=== PATIENT | female | born 1970 | race Asian ===

== ENCOUNTER → 2018-01-23 13:23 | Outpatient (CLI) | payer OTHER, MEDICAID, SELFPAY ==
--- NOTE | 2018-01-23 | DI.MG.S_ITS ---
BILATERAL DIGITAL SCREENING MAMMOGRAM 3D/2D WITH CAD: 01/23/2018 CLINICAL: Routine screening. Comparison is made to exams dated: 01/15/2016 mammogram, 12/25/2014 mammogram, and 05/16/2012 mammogram - [facility]. The tissue of both breasts is extremely dense, which lowers the sensitivity of mammography. Current study was also evaluated with a Computer Aided Detection (CAD) system. No significant masses, calcifications, or other findings are seen in either breast. There has been no significant interval change. IMPRESSION: NEGATIVE There is no mammographic evidence of malignancy. A 1 year screening mammogram is recommended. This exam was interpreted at Station ID: [id number]. NOTE: For mammograms, a report in lay terms will be sent to the patient. Approximately 15% of breast malignancies will not be visualized mammographically. In the management of a palpable breast mass, a negative mammogram must not discourage biopsy of a clinically suspicious lesion. Electronically Signed By: Van yoo/christian:01/23/2018 16:01:58 letter sent: Normal Exam ACR BI-RADS Category 1: Negative [id number]
== END ==
PROVIDERS: Family Provider Physician Assistant Medical; PCP Physician Assistant Medical; Visit Provider Physician Assistant Medical
DX: Z12.31 Encounter for screening mammogram for malignant neoplasm of breast (principal)
CPT/HCPCS: 77063; 77067

== ENCOUNTER 2018-09-15 13:04 | Emergency (ER) | payer OTHER, MEDICAID, SELFPAY ==
[2018-09-15 13:05] VITALS: BP 116/77; PULSE 94; RESP 16; TEMP 36.8; O2SAT 98
[2018-09-15 15:40] VITALS: BP 101/75; PULSE 76; RESP 15; O2SAT 98
--- NOTE | 2018-09-15 16:28 | ED.NEUROSD ---
HPI - Neuro Symptoms/Deficit General Chief Complaint: Neuro Symptoms/Deficit Stated Complaint: numbness on rt side of face, dizziness Time Seen by Provider: 09/15/18 16:18 Source: patient, family and EMS Mode of arrival: EMS Limitations: altered mental status History of Present Illness HPI Narrative: Patient is a 47-year-old female who presents with right facial numbness. It is 1 specific area right over her mouth. 9 days ago she had injection for her neck. She states that they injected her right trapezius muscle by her scapula. There was no needle into her spine. She has not had fever she is moving her neck freely she constantly has pain in her neck is not any worse than normal. She also has a headache as she normally has headaches which she takes Excedrin for this is not a worsening headache On Anticoagulants: No Related Data Home Medications Medication Instructions Recorded Confirmed benzonatate 100 mg PO Q4H PRN 09/15/18 09/15/18 clobetasol 1 applic TOPICAL DIRECTED 09/15/18 09/15/18 clobetasol 1 applic TOPICAL DIRECTED 09/15/18 09/15/18 desogestrel-ethinyl estradiol 1 tab PO DAILY 09/15/18 09/15/18 [Richareber] diclofenac sodium 75 mg PO BID 09/15/18 09/15/18 epinephrine 0.3 mg IM PRN PRN 09/15/18 escitalopram oxalate 10 mg PO DAILY 09/15/18 09/15/18 fluticasone propionate [Flonase 1 spray INTRANASAL DIRECTED 09/15/18 09/15/18 Allergy Relief] hydrocodone-acetaminophen 1 tab PO PRN PRN 09/15/18 09/15/18 hydroxyzine HCl 10 mg PO BID 09/15/18 09/15/18 ketoconazole 1 applic TOPICAL DIRECTED 09/15/18 09/15/18 ketoconazole 1 applic TOPICAL DIRECTED 09/15/18 09/15/18 naratriptan 2.5 mg PO PRN PRN 09/15/18 09/15/18 pimecrolimus 1 applic TOPICAL DIRECTED 09/15/18 09/15/18 polyethylene glycol 3350 [Gavilax] 17 g PO DAILY 09/15/18 09/15/18 zolpidem 10 mg PO BEDTIME PRN 09/15/18 09/15/18 Allergies Allergy/AdvReac Type Severity Reaction Status Date / Time diphenhydramine Allergy Unknown Verified 09/15/18 17:06 [From BENADRYL] iodine [IODINE] Allergy Unknown Verified 09/15/18 17:06 lidocaine [LIDOCAINE] Allergy Unknown Verified 09/15/18 17:06 NICKEL SULFATE Allergy Unknown Uncoded 09/15/18 17:06 PHENOL FORMALDEHYDE RESIN Allergy Unknown Uncoded 09/15/18 17:06 PHENYLENEDIAMINE Allergy Unknown Uncoded 09/15/18 17:06 POTASSIUM DICHROMATE Allergy Unknown Uncoded 09/15/18 17:06 Review of Systems Review of Systems GENERAL: Denies chills, fatigue, malaise, fever, sweats, travel HEENT: Denies sinus pain, ear pain, sore throat, difficulty swallowing, neck pain RESPIRATORY: Denies dyspnea, cough, wheezing, hemoptysis, sputum. CARDIOVASCULAR: Denies chest pain, palpitations, orthopnea, edema GASTROINTESTINAL: Denies nausea, vomiting, abdominal pain, diarrhea, constipation, melena. : Denies dysuria, frequency, incontinence, hematuria, urinary retention, flank pain. MUSCULOSKELETAL: Denies weakness, joint pain, or bony pain SKIN: No rash, no erythema, no pruritus NEUROLOGIC: Numbness around mouth, denies speech difficulty weakness extremity tingling PSYCHIATRIC: No concerning psychosocial issues. 12 point review of systems is negative except for those stated above and HPI [facility] Medical History Chronic cervical pain (Acute) Social History Smoking Status: Former smoker alcohol intake: never substance use type: does not use Social History Smoking Status: Former smoker alcohol intake: never substance use type: does not use Exam Initial Vital Signs Initial Vital Signs: Vital Signs Temperature 98.2 F 09/15/18 13:05 Pulse Rate 94 H 09/15/18 13:05 Respiratory Rate 16 09/15/18 13:05 Blood Pressure 116/77 09/15/18 13:05 Pulse Oximetry 98 09/15/18 13:05 GENERAL: Well-appearing, well-nourished and in no acute distress. HEENT: Head atraumatic,EOMI, pupils reactive, face symmetric, CARDIOVASCULAR: Regular rate and rhythm without murmurs, rubs or gallops. RESPIRATORY: Breath sounds equal bilaterally, no wheezes rales or rhonchi. ABDOMEN: Soft, nontender. Normoactive bowel sounds all 4 quadrants. No guarding or rebound. EXTREMITIES: Normal range of motion, no clubbing or edema. Neurovascularly intact NEUROLOGICAL: Alert and oriented x4.Normal gait and speech. Cranial nerves II through XII grossly intact. Good [id number], good [id number], strength equal bilaterally, no dysarthria or aphasia, sensation in tact to soft touch bilaterally, no visual changes, no facial droop. The light sensation change around the right corner of mouth and chin area compared to the left SKIN: Warm, dry, no laceration, no petechiae, no rashes or lesions. Scores NIH Stroke Scale Level of Conciousness: Alert, keenly responsive Ask month/age: Answers both questions correctly. Open/close eyes, close hand: Performs both tasks correctly Best gaze horizontal: Normal Visual wright: No visual loss Facial palsy: Normal symetrical movement Left arm drift: No drift for full 10 sec Right arm drift: No drift for full 10 sec Left leg drift: No drift for full 10 sec Right leg drift: No drift for full 10 sec Limb ataxia: Absent Sensory on face/arms/legs: Normal, no sensory loss Best language: No aphasia, normal Dysarthria: Normal Extinction or inattention: No abnormality Total NIH Stroke scale score: 0 Course Orders Ordered: ED Orders 09/15/18 16:48 CT head/brain wo con Stat 09/15/18 16:57 Basic Metabolic Panel Stat Complete Blood Count AUTO DIFF Stat 09/15/18 17:12 MR cervical spine wo/w con Stat Discontinued Medications Sodium Chloride (Normal Saline 0.9%) 1,000 mls @ 1,000 mls/hr IV BOLUS ONE Stop: 09/15/18 17:47 Last Infusion: 09/15/18 18:38 Dose: 0 mls/hr Admin: 09/15/18 17:39 Dose: 1,000 mls/hr Ketorolac Tromethamine (Toradol) 30 mg IV NOW ONE Stop: 09/15/18 16:49 Last Admin: 09/15/18 17:39 Dose: 30 mg Ondansetron HCl (Zofran) 4 mg IV NOW ONE Stop: 09/15/18 16:49 Last Admin: 09/15/18 17:39 Dose: 4 mg Vital Signs - 8 hr 09/15/18 13:05 09/15/18 15:40 Temperature 98.2 F Pulse Rate 94 H 76 Respiratory Rate 16 15 Blood Pressure 116/77 Blood Pressure [Left Arm] 101/75 Pulse Oximetry 98 98 MDM - Neuro Symptoms/Deficit Medical Records Attestation: I reviewed the patient's medical records. I was able to look at [facility] radiology records. There is a record from 09/06/2018 with fluoroscopy and needle injection of the cervical spine Lab Data Attestation: I reviewed the patient's lab results. Result diagrams: 09/15/18 16:57 09/15/18 16:57 Lab Results 09/15/18 09/15/18 Range/Units 16:57 16:57 WBC 6.7 (4.5-11.0) X10^3/uL RBC 4.70 (4.0-5.2) X10^6/uL Hgb 14.2 (12.0-16.0) g/dL Hct 42.5 (36-46) % MCV 90.3 (80-100) fL MCH 30.2 (26-34) PG MCHC 33.4 (30-36) % RDW 14.2 (11.6-14.8) % Plt Count 296 (150-400) X10^3/uL Neut % (Auto) 53.7 (50-75) % Lymph % (Auto) 36.2 (25-40) % Trinity % (Auto) 6.1 (3-14) % Eos % (Auto) 3.2 (2-4) % Baso % (Auto) 0.8 (0-2) % Neut # (Auto) 3600 (4212-5587) /uL Lymph # (Auto) 2400 (9276-6792) /uL Trinity # (Auto) 400 (0-900) /uL Eos # (Auto) 200 (0-450) /uL Baso # (Auto) 100 (0-100) /uL Sodium 138 (137-145) mmol/L Potassium 3.9 (3.4-5.1) mmol/L Chloride 104 (98-107) mmol/L Carbon Dioxide 23 (22-32) mmol/L BUN 16 (7-17) mg/dL Creatinine 0.90 (0.52-1.04) mg/dL Estimated GFR > 60.0 (>60) mL/min BUN/Creatinine Ratio 17.8 (6-22) Glucose 90 (70-100) mg/dL Calcium 9.0 (8.4-10.2) mg/dL Imaging Data CT scan - head: Radiologist's impression: PROCEDURE: CT HEAD/BRAIN WO CON INDICATIONS: numb face and headache TECHNIQUE: Noncontrast 4.5 mm thick angled axial sections acquired from the foramen magnum to the vertex, with coronal and sagittal reformats. For radiation dose reduction, the following was used: automated exposure control, adjustment of mA and/or kV according to patient size. COMPARISON: [facility], CT, HEAD WITHOUT CONTRAST, 09/17/2016, 20:07. FINDINGS: Image quality: Excellent. CSF spaces: Basal cisterns are patent. No extra-axial fluid collections. Ventricles are normal in size and shape. Brain: No midline shift. No intracranial masses or hemorrhage. Harkins-white matter interface is normal. Skull and face: Calvarium and visualized facial bones are intact, without suspicious lesions. Sinuses: Visualized sinuses and mastoids are clear. IMPRESSION: 1. No acute intracranial process. Dictated by: Dian Torrez M.D. on 09/15/2018 at 16:11 MRI Cervical: Radiologist's impression: PROCEDURE: MR CERVICAL SPINE WO/W CON INDICATIONS: injection 9 days ago, no right face numbness TECHNIQUE: Noncontrast sagittal T1 spin echo and T2 fast spin echo, sagittal STIR, foraminal oblique sagittal T2 fast spin echo, axial gradient echo or T2 fast spin echo through the cervical spine. After the administration of contrast, axial and sagittal T1 spin echo with fat saturation through the cervical spine. COMPARISON: [facility], RF, CERVICAL SPINE INTERLAMINAR, 09/06/2018, 13:06. [facility], MR, C-SPINE WITHOUT CONTRAST, 10/13/2017, 17:40. [facility], CR, XR CERVICAL SPINE 2 OR 3 VIEWS, 10/06/2017, 11:09. FINDINGS: Image quality: Excellent. Alignment and curvature: Straightening of the cervical lordosis without subluxation. Marrow: Marrow is normal in overall signal, without suspicious enhancement. Spinal cord: Visualized spinal cord has normal size and signal. No cerebellar tonsillar herniation. No abnormal intramedullary enhancement. Paraspinous soft tissues: No paravertebral masses or suspicious enhancement. C2-3: Normal appearance. C3-4: Moderate bilateral foraminal disc osteophyte, left larger than right causing moderate left, and mild right foraminal stenosis. Mild posterior disc osteophyte complex causing mild/moderate central canal narrowing, minimally progressed compared to prior. C4-5: Mild posterior central disc bulge, stable. C5-6: Broad-based right paracentral/foraminal disc osteophyte, increased compared to the prior study narrowing the right thecal sac. Mild right foraminal narrowing. C6-7: Normal appearance. C7-T1: Normal appearance. IMPRESSION: 1. Mild progression of chronic degenerative disc osteophyte changes at multiple levels, most extensive on the left at the C3-4 level 2. No epidural fluid collection to suggest complication of recent procedure. Dictated by: Suzy Guadalupe M.D. on 09/15/2018 at 18:08 MDM Narrative Medical decision making narrative: The patient has a mild numbness in her face. The history of a headache possible complicated migraine headache. Head CT MRI of the neck are negative blood work also negative. Patient is feeling better. Discharge Plan Departure Patient Disposition: Home Clinical Impression: Migraine Qualifiers: Migraine type: unspecified Status migrainosus presence: without status migrainosus Intractability: not intractable Qualified Code(s): G43.909 - Migraine, unspecified, not intractable, without status migrainosus Activity Restrictions/Additional Instructions: *You have been diagnosed with headache *What to do: CT scan of had an MRI today did not show any complication from recent procedure. Symptoms are not consistent with stroke. Possibly a complicated migraine like headache. *Continue to take medications as directed *Follow up with your primary care provider in 2-3 days *Return to ER if you should have weakness, worsening numbness, speech difficulty, vision trouble, increasing headache or any new, worsening or concerning symptoms the Prescriptions: No Action desogestrel-ethinyl estradiol [Richareber] 0.15-0.03 mg tablet 1 tab PO DAILY RF: 0 ketoconazole 2 % shampoo 1 applic topical DIRECTED RF: 0 hydrocodone-acetaminophen 5-325 mg tablet 1 tab PO PRN PRN (Reason: pain) RF: 0 pimecrolimus 1 % cream 1 applic topical DIRECTED RF: 0 benzonatate 100 mg capsule 100 mg PO Q4H PRN (Reason: Cough) RF: 0 diclofenac sodium 75 mg tablet,delayed release (DR/EC) 75 mg PO BID RF: 0 clobetasol 0.05 % ointment 1 applic topical DIRECTED RF: 0 epinephrine 0.3 mg/0.3 mL auto-injector 0.3 mg IM PRN PRN (Reason: Allergic Reaction) RF: 0 polyethylene glycol 3350 [Gavilax] 17 gram/dose powder 17 g PO DAILY RF: 0 zolpidem 10 mg tablet 10 mg PO BEDTIME PRN (Reason: Sleep) RF: 0 ketoconazole 2 % cream 1 applic topical DIRECTED RF: 0 hydroxyzine HCl 10 mg tablet 10 mg PO BID RF: 0 clobetasol 0.05 % solution 1 applic topical DIRECTED RF: 0 fluticasone propionate [Flonase Allergy Relief] 50 mcg/actuation spray,suspension 1 spray Intranasal DIRECTED RF: 0 naratriptan 2.5 mg tablet 2.5 mg PO PRN PRN (Reason: Migraine Headache) RF: 0 escitalopram oxalate 10 mg tablet 10 mg PO DAILY RF: 0 Referrals: Feli Farris PA-C [Primary Care Provider] -
--- NOTE | 2018-09-15 16:31 | ED_ITS ---
HPI - Neuro Symptoms/Deficit General Chief Complaint: Neuro Symptoms/Deficit Stated Complaint: numbness on rt side of face, dizziness Time Seen by Provider: 09/15/18 16:18 Source: patient, family and EMS Mode of arrival: EMS Limitations: altered mental status History of Present Illness HPI Narrative: Patient is a 47-year-old female who presents with right facial numbness. It is 1 specific area right over her mouth. 9 days ago she had injection for her neck. She states that they injected her right trapezius mu scle by her scapula. There was no needle into her spine. She has not had fever she is moving her neck freely she constantly has pain in her neck is not any worse than normal. She also has a headache as she normally has headaches which she takes Excedrin for this is not a worsening headache On Anticoagulants: No Related Data Home Medications Medication Instructions Recorded Confirmed benzonatate 100 mg PO Q4H PRN 09/15/18 09/15/18 clobetasol 1 applic TOPICAL DIRECTED 09/15/18 09/15/18 clobetasol 1 applic TOPICAL DIRECTED 09/15/18 09/15/18 desogestrel-ethinyl estradiol 1 tab PO DAILY 09/15/18 09/15/18 [Anuper] diclofenac sodium 75 mg PO BID 09/15/18 09/15/18 epinephrine 0.3 mg IM PRN PRN 09/15/18 escitalopram oxalate 10 mg PO DAILY 09/15/18 09/15/18 fluticasone propionate [Flonase 1 spray INTRANASAL DIRECTED 09/15/18 09/15/18 Allergy Relief] hydrocodone-acetaminophen 1 tab PO PRN PRN 09/15/18 09/15/18 hydroxyzine HCl 10 mg PO BID 09/15/18 09/15/18 ketoconazole 1 applic TOPICAL DIRECTED 09/15/18 09/15/18 ketoconazole 1 applic TOPICAL DIRECTED 09/15/18 09/15/18 naratriptan 2.5 mg PO PRN PRN 09/15/18 09/15/18 pimecrolimus 1 applic TOPICAL DIRECTED 09/15/18 09/15/18 polyethylene glycol 3350 [Gavilax] 17 g PO DAILY 09/15/18 09/15/18 zolpidem 10 mg PO BEDTIME PRN 09/15/18 09/15/18 Allergies Allergy/AdvReac Type Severity Reaction Status Date / Time diphenhydramine Allergy Unknown Verified 09/15/18 17:06 [From BENADRYL] iodine [IODINE] Allergy Unknown Verified 09/15/18 17:06 lidocaine [LIDOCAINE] Allergy Unknown Verified 09/15/18 17:06 NICKEL SULFATE Allergy Unknown Uncoded 09/15/18 17:06 PHENOL FORMALDEHYDE RESIN Allergy Unknown Uncoded 09/15/18 17:06 PHENYLENEDIAMINE Allergy Unknown Uncoded 09/15/18 17:06 POTASSIUM DICHROMATE Allergy Unknown Uncoded 09/15/18 17:06 Review of Systems Review of Systems GENERAL: Denies chills, fatigue, malaise, fever, sweats, travel HEENT: Denies sinus pain, ear pain, sore throat, difficulty swallowing, neck pain RESPIRATORY: Denies dyspnea, cough, wheezing, hemoptysis, sputum. CARDIOVASCULAR: Denies chest pain, palpitations, orthopnea, edema GASTROINTESTINAL: Denies nausea, vomiting, abdominal pain, diarrhea, constipation, melena. : Denies dysuria, frequency, incontinence, hematuria, urinary retention, flank pain. MUSCULOSKELETAL: Denies weakness, joint pain, or bony pain SKIN: No rash, no erythema, no pruritus NEUROLOGIC: Numbness around mouth, denies speech difficulty weakness extremity tingling PSYCHIATRIC: No concerning psychosocial issues. 12 point review of systems is negative except for those stated above and HPI PFSH Medical History Chronic cervical pain (Acute) Social History Smoking Status: Former smoker alcohol intake: never substance use type: does not use Social History Smoking Status: Former smoker alcohol intake: never substance use type: does not use Exam Initial Vital Signs Initial Vital Signs: Vital Signs Temperature 98.2 F 09/15/18 13:05 Pulse Rate 94 H 09/15/18 13:05 Respiratory Rate 16 09/15/18 13:05 Blood Pressure 116/77 09/15/18 13:05 Pulse Oximetry 98 09/15/18 13:05 GENERAL: Well-appearing, well-nourished and in no acute distress. HEENT: Head atraumatic,EOMI, pupils reactive, face symmetric, CARDIOVASCULAR: Regular rate and rhythm without murmurs, rubs or gallops. RESPIRATORY: Breath sounds equal bilaterally, no wheezes rales or rhonchi. ABDOMEN: Soft, nontender. Normoactive bowel sounds all 4 quadrants. No guarding or rebound. EXTREMITIES: Normal range of motion, no clubbing or edema. Neurovascularly intact NEUROLOGICAL: Alert and oriented x4.Normal gait and speech. Cranial nerves II through XII grossly intact. Good [id number], good [id number], strength equal bilaterally, no dysarthria or aphasia, sensation in tact to soft touch bilaterally, no visual changes, no facial droop. The light sensation change ar ound the right corner of mouth and chin area compared to the left SKIN: Warm, dry, no laceration, no petechiae, no rashes or lesions. Scores NIH Stroke Scale Level of Conciousness: Alert, keenly responsive Ask month/age: Answers both questions correctly. Open/close eyes, close hand: Performs both tasks correctly Best gaze horizontal: Normal Visual wright: No visual loss Facial palsy: Normal symetrical movement Left arm drift: No drift for full 10 sec Right arm drift: No drift for full 10 sec Left leg drift: No drift for full 10 sec Right leg drift: No drift for full 10 sec Limb ataxia: Absent Sensory on face/arms/legs: Normal, no sensory loss Best language: No aphasia, normal Dysarthria: Normal Extinction or inattention: No abnormality Total NIH Stroke scale score: 0 Course Orders Ordered: ED Orders 09/15/18 16:48 CT head/brain wo con Stat 09/15/18 16:57 Basic Metabolic Panel Stat Complete Blood Count AUTO DIFF Stat 09/15/18 17:12 MR cervical spine wo/w con Stat Discontinued Medications Sodium Chloride (Normal Saline 0.9%) 1,000 mls @ 1,000 mls/hr IV BOLUS ONE Stop: 09/15/18 17:47 Last Infusion: 09/15/18 18:38 Dose: 0 mls/hr Admin: 09/15/18 17:39 Dose: 1,000 mls/hr Ketorolac Tromethamine (Toradol) 30 mg IV NOW ONE Stop: 09/15/18 16:49 Last Admin: 09/15/18 17:39 Dose: 30 mg Ondansetron HCl (Zofran) 4 mg IV NOW ONE Stop: 09/15/18 16:49 Last Admin: 09/15/18 17:39 Dose: 4 mg Vital Signs - 8 hr 09/15/18 13:05 09/15/18 15:40 Temperature 98.2 F Pulse Rate 94 H 76 Respiratory Rate 16 15 Blood Pressure 116/77 Blood Pressure [Left Arm] 101/75 Pulse Oximetry 98 98 MDM - Neuro Symptoms/Deficit Medical Records Attestation: I reviewed the patient's medical records. I was able to look at [facility] radiology records. There is a record from 09/06/2018 with fluoroscopy and needle injection of the cervical spine Lab Data Attestation: I reviewed the patient's lab results. Result diagrams: 09/15/18 16:57 09/15/18 16:57 Lab Results 09/15/18 09/15/18 Range/Units 16:57 16:57 WBC 6.7 (4.5-11.0) X10^3/uL RBC 4.70 (4.0-5.2) X10^6/uL Hgb 14.2 (12.0-16.0) g/dL Hct 42.5 (36-46) % MCV 90.3 (80-100) fL MCH 30.2 (26-34) PG MCHC 33.4 (30-36) % RDW 14.2 (11.6-14.8) % Plt Count 296 (150-400) X10^3/uL Neut % (Auto) 53.7 (50-75) % Lymph % (Auto) 36.2 (25-40) % [place] % (Auto) 6.1 (3-14) % Eos % (Auto) 3.2 (2-4) % Baso % (Auto) 0.8 (0-2) % Neut # (Auto) 3600 (4463-0143) /uL Lymph # (Auto) 2400 (2202-6557) /uL [place] # (Auto) 400 (0-900) /uL Eos # (Auto) 200 (0-450) /uL Baso # (Auto) 100 (0-100) /uL Sodium 138 (137-145) mmol/L Potassium 3.9 (3.4-5.1) mmol/L Chloride 104 (98-107) mmol/L Carbon Dioxide 23 (22-32) mmol/L BUN 16 (7-17) mg/dL Creatinine 0.90 (0.52-1.04) mg/dL Estimated GFR > 60.0 (>60) mL/min BUN/Creatinine Ratio 17.8 (6-22) Glucose 90 (70-100) mg/dL Calcium 9.0 (8.4-10.2) mg/dL Imaging Data CT scan - head: Radiologist's impression: PROCEDURE: CT HEAD/BRAIN WO CON INDICATIONS: numb face and headache TECHNIQUE: Noncontrast 4.5 mm thick angled axial sections acquired from the foramen magnum to the vertex, with coronal and sagittal reformats. For radiation dose reduction, the following was used: automated exposure control, adjustment of mA and/or kV according to patient size. COMPARISON: [facility], CT, HEAD WITHOUT CONTRAST, 09/17/2016, 20:07. FINDINGS: Image quality: Excellent. CSF spaces: Basal cisterns are patent. No extra-axial fluid collections. Ventricles are normal in size and shape. Brain: No midline shift. No intracranial masses or hemorrhage. Harkins-white matter interface is normal. Skull and face: Calvarium and visualized facial bones are intact, without suspicious lesions. Sinuses: Visualized sinuses and mastoids are clear. IMPRESSION: 1. No acute intracranial process. Dictated by: Dian Torrez M.D. on 09/15/2018 at 16:11 MRI Cervical: Radiologist's impression: PROCEDURE: MR CERVICAL SPINE WO/W CON INDICATIONS: injection 9 days ago, no right face numbness TECHNIQUE: Noncontrast sagittal T1 spin echo and T2 fast spin echo, sagittal STIR, foraminal oblique sagittal T2 fast spin echo, axial gradient echo or T2 fast spin echo through the cervical spine. After the administration of contrast, axial and sagittal T1 spin echo with fat saturation through the cervical spine. COMPARISON: [facility], , CERVICAL SPINE INTERLAMINAR, 09/06/2018, 13:06. [facility], MR, C-SPINE WITHOUT CONTRAST, 10/13/2017, 17:40. [facility] [place], CR, XR CERVICAL SPINE 2 OR 3 VIEWS, 10/06/2017, 11:09. FINDINGS: Image quality: Excellent. Alignment and curvature: Straightening of the cervical lordosis without subluxation. Marrow: Marrow is normal in overall signal, without suspicious enhancement. Spinal cord: Visualized spinal cord has normal size and signal. No cerebellar tonsillar herniation. No abnormal intramedullary enhancement. Paraspinous soft tissues: No paravertebral masses or suspicious enhancement. C2-3: Normal appearance. C3-4: Moderate bilateral foraminal disc osteophyte, left larger than right causing moderate left, and mild right foraminal stenosis. Mild posterior disc osteophyte complex causing mild/moderate central canal narrowing, minimally progressed compared to prior. C4-5: Mild posterior central disc bulge, stable. C5-6: Broad-based right paracentral/foraminal disc osteophyte, increased compared to the prior study narrowing the right thecal sac. Mild right foraminal narrowing. C6-7: Normal appearance. C7-T1: Normal appearance. IMPRESSION: 1. Mild progression of chronic degenerative disc osteophyte changes at multiple levels, most extensive on the left at the C3-4 level 2. No epidural fluid collection to suggest complication of recent procedure. Dictated by: Suzy Guadalupe M.D. on 09/15/2018 at 18:08 MDM Narrative Medical decision making narrative: The patient has a mild numbness in her face. The history of a headache possible complicated migraine headache. Head CT MRI of the neck are negative blood work also negative. Patient is feeling better. Discharge Plan Departure Patient Disposition: Home Clinical Impression: Migraine Qualifiers: Migraine type: unspecified Status migrainosus presence: without status migrainosus Intractability: not intractable Qualified Code(s): G43.909 - Migraine, unspecified, not intractable, without status migrainosus Activity Restrictions/Additional Instructions: *You have been diagnosed with headache *What to do: CT scan of had an MRI today did not show any complication from recent procedure. Symptoms are not consistent with stroke. Possibly a complicated migraine like headache. *Continue to take medications as directed *Follow up with your primary care provider in 2-3 days *Return to ER if you should have weakness, worsening numbness, speech dif ficulty, vision trouble, increasing headache or any new, worsening or concerning symptoms the Prescriptions: No Action desogestrel-ethinyl estradiol [Juleber] 0.15-0.03 mg tablet 1 tab PO DAILY RF: 0 ketoconazole 2 % shampoo 1 applic topical DIRECTED RF: 0 hydrocodone-acetaminophen 5-325 mg tablet 1 tab PO PRN PRN (Reason: pain) RF: 0 pimecrolimus 1 % cream 1 applic topical DIRECTED RF: 0 benzonatate 100 mg capsule 100 mg PO Q4H PRN (Reason: Cough) RF: 0 diclofenac sodium 75 mg tablet,delayed release (DR/EC) 75 mg PO BID RF: 0 clobetasol 0.05 % ointment 1 applic topical DIRECTED RF: 0 epinephrine 0.3 mg/0.3 mL auto-injector 0.3 mg IM PRN PRN (Reason: Allergic Reaction) RF: 0 polyethylene glycol 3350 [Gavilax] 17 gram/dose powder 17 g PO DAILY RF: 0 zolpidem 10 mg tablet 10 mg PO BEDTIME PRN (Reason: Sleep) RF: 0 ketoconazole 2 % cream 1 applic topical DIRECTED RF: 0 hydroxyzine HCl 10 mg tablet 10 mg PO BID RF: 0 clobetasol 0.05 % solution 1 applic topical DIRECTED RF: 0 fluticasone propionate [Flonase Allergy Relief] 50 mcg/actuation spray,suspension 1 spray Intranasal DIRECTED RF: 0 naratriptan 2.5 mg tablet 2.5 mg PO PRN PRN (Reason: Migraine Headache) RF: 0 escitalopram oxalate 10 mg tablet 10 mg PO DAILY RF: 0 Referrals: Feli Farris PA-C [Primary Care Provider] -
--- NOTE | 2018-09-15 16:48 | DI.CT.S_ITS ---
PROCEDURE: CT HEAD/BRAIN WO CON INDICATIONS: numb face and headache TECHNIQUE: Noncontrast 4.5 mm thick angled axial sections acquired from the foramen magnum to the vertex, with coronal and sagittal reformats. For radiation dose reduction, the following was used: automated exposure control, adjustment of mA and/or kV according to patient size. COMPARISON: [facility], CT, HEAD WITHOUT CONTRAST, 09/17/2016, 20:07. FINDINGS: Image quality: Excellent. CSF spaces: Basal cisterns are patent. No extra-axial fluid collections. Ventricles are normal in size and shape. Brain: No midline shift. No intracranial masses or hemorrhage. Harkins-white matter interface is normal. Skull and face: Calvarium and visualized facial bones are intact, without suspicious lesions. Sinuses: Visualized sinuses and mastoids are clear. IMPRESSION: 1. No acute intracranial process. Dictated by: Dian Torrez M.D. on 09/15/2018 at 16:11 Approved by: Dina Torrez M.D. on 09/15/2018 at 16:12
[2018-09-15 17:06] LABS: Add Manual Diff / Slide Review NO; Basophils Absolute Auto 100 /uL (0-100); Basophils Percent Auto 0.8 % (0-2); Eosinophils Absolute Auto 200 /uL (0-450); Eosinophils Percent Auto 3.2 % (2-4); Hematocrit 42.5 % (36-46); Hemoglobin 14.2 g/dL (12.0-16.0); Lymphocytes Absolute Auto 2400 /uL (1100-4500); Lymphocytes Percent Auto 36.2 % (25-40); Mean Corpuscular HGB Conc 33.4 % (30-36); Mean Corpuscular Hemoglobin 30.2 PG (26-34); Mean Corpuscular Volume 90.3 fL (80-100); Monocytes Absolute Auto 400 /uL (0-900); Monocytes Percent Auto 6.1 % (3-14); Neutrophils Absolute Auto 3600 /uL (1500-7000); Neutrophils Percent Auto 53.7 % (50-75); Platelet Count 296 X10^3/uL (150-400); Red Cell Distribution Width 14.2 % (11.6-14.8); White Blood Cell Count 6.7 X10^3/uL (4.5-11.0)
--- NOTE | 2018-09-15 17:08 | PC.NURSE ---
right sided numbness on her chin, approx. 2 in. reports she had a pain injection into her shoulder for her c4, c5. reports she thinks that they threaded a wire to c4, c5. numbness started yesterday
--- NOTE | 2018-09-15 17:12 | DI.MRI.S_ITS ---
PROCEDURE: MR CERVICAL SPINE WO/W CON INDICATIONS: injection 9 days ago, no right face numbness TECHNIQUE: Noncontrast sagittal T1 spin echo and T2 fast spin echo, sagittal STIR, foraminal oblique sagittal T2 fast spin echo, axial gradient echo or T2 fast spin echo through the cervical spine. After the administration of contrast, axial and sagittal T1 spin echo with fat saturation through the cervical spine. COMPARISON: [facility], RF, CERVICAL SPINE INTERLAMINAR, 09/06/2018, 13:06. [facility], MR, C-SPINE WITHOUT CONTRAST, 10/13/2017, 17:40. [facility] [place], CR, XR CERVICAL SPINE 2 OR 3 VIEWS, 10/06/2017, 11:09. FINDINGS: Image quality: Excellent. Alignment and curvature: Straightening of the cervical lordosis without subluxation. Marrow: Marrow is normal in overall signal, without suspicious enhancement. Spinal cord: Visualized spinal cord has normal size and signal. No cerebellar tonsillar herniation. No abnormal intramedullary enhancement. Paraspinous soft tissues: No paravertebral masses or suspicious enhancement. C2-3: Normal appearance. C3-4: Moderate bilateral foraminal disc osteophyte, left larger than right causing moderate left, and mild right foraminal stenosis. Mild posterior disc osteophyte complex causing mild/moderate central canal narrowing, minimally progressed compared to prior. C4-5: Mild posterior central disc bulge, stable. C5-6: Broad-based right paracentral/foraminal disc osteophyte, increased compared to the prior study narrowing the right thecal sac. Mild right foraminal narrowing. C6-7: Normal appearance. C7-T1: Normal appearance. IMPRESSION: 1. Mild progression of chronic degenerative disc osteophyte changes at multiple levels, most extensive on the left at the C3-4 level 2. No epidural fluid collection to suggest complication of recent procedure. Dictated by: Suzy Guadalupe M.D. on 09/15/2018 at 18:08 Approved by: Suzy Guadalupe M.D. on 09/15/2018 at 18:16
[2018-09-15 17:39] LABS: BUN Creatinine Ratio 17.8 (6-22); Blood Urea Nitrogen 16 mg/dL (7-17); Carbon Dioxide 23 mmol/L (22-32); Chloride 104 mmol/L (98-107); Estimated Glomerular Filt Rate > 60.0 mL/min (>60); Glucose 90 mg/dL (70-100); HEMOLYSIS < 15 (0-50); Potassium 3.9 mmol/L (3.4-5.1); Sodium 138 mmol/L (137-145)
[2018-09-15] MEDS: KETOROLAC 60 MG/2 ML VIAL 30 MG IV (17:39)
[2018-09-15] MEDS: ONDANSETRON 4 MG/2 ML INJ IV (17:39)
[2018-09-15] MEDS: SODIUM CHLORIDE 0.9% 1,000 ML 1000 ML IV (17:39)
[2018-09-15 18:47] VITALS: BP 108/61; PULSE 66; RESP 16; O2SAT 99
== END 2018-09-15 18:57 | disposition home or self-care (01) ==
PROVIDERS: Emergency Provider Emergency Medicine; Family Provider Physician Assistant Medical; PCP Physician Assistant Medical
DX: G43.909 Migraine, unspecified, not intractable, without status migrainosus (principal)
CPT/HCPCS: 36591; 70450; 72156; 80048; 85025; 96361; 96374; 96375; 99283; 99284; 99291; A9579; J1885; J2405

== ENCOUNTER → 2019-02-14 11:59 | Outpatient (CLI) | payer OTHER, MEDICAID, SELFPAY ==
--- NOTE | 2019-02-14 | DI.MG.S_ITS ---
BILATERAL DIGITAL SCREENING MAMMOGRAM 3D/2D WITH CAD: 02/14/2019 CLINICAL: Routine screening. Comparison is made to exams dated: 01/23/2018 mammogram, 01/15/2016 mammogram, 12/25/2014 mammogram, and 05/16/2012 mammogram - [facility]. The tissue of both breasts is extremely dense, which lowers the sensitivity of mammography. Current study was also evaluated with a Computer Aided Detection (CAD) system. No significant masses, calcifications, or other findings are seen in either breast. There has been no significant interval change. IMPRESSION: NEGATIVE There is no mammographic evidence of malignancy. A 1 year screening mammogram is recommended. This exam was interpreted at Station ID: [id number]. NOTE: For mammograms, a report in lay terms will be sent to the patient. Approximately 15% of breast malignancies will not be visualized mammographically. In the management of a palpable breast mass, a negative mammogram must not discourage biopsy of a clinically suspicious lesion. Electronically Signed By: Luke lucero/christian:02/14/2019 18:18:31 letter sent: Normal Exam ACR BI-RADS Category 1: Negative [id number]
== END ==
PROVIDERS: PCP Physician Assistant Medical; Visit Provider Physician Assistant Medical
DX: Z12.31 Encounter for screening mammogram for malignant neoplasm of breast (principal)
CPT/HCPCS: 77063; 77067

== ENCOUNTER → 2020-04-05 12:42 | Outpatient (CLI) | payer OTHER, MEDICAID, SELFPAY ==
--- NOTE | 2020-04-05 | DI.MG.S_ITS ---
BILATERAL DIGITAL SCREENING MAMMOGRAM 3D/2D WITH CAD: 04/05/2020 CLINICAL: Routine screening. Comparison is made to exams dated: 02/14/2019 mammogram, 01/23/2018 mammogram, and 01/15/2016 mammogram - [facility]. The tissue of both breasts is extremely dense, which lowers the sensitivity of mammography. Current study was also evaluated with a Computer Aided Detection (CAD) system. No significant masses, calcifications, or other findings are seen in either breast. There has been no significant interval change. IMPRESSION: NEGATIVE There is no mammographic evidence of malignancy. A 1 year screening mammogram is recommended. This exam was interpreted at Station ID: [id number]. NOTE: For mammograms, a report in lay terms will be sent to the patient. Approximately 15% of breast malignancies will not be visualized mammographically. In the management of a palpable breast mass, a negative mammogram must not discourage biopsy of a clinically suspicious lesion. Electronically Signed By: Audra george/christian:04/06/2020 15:46:51 letter sent: Normal Exam ACR BI-RADS Category 1: Negative [id number]
== END ==
PROVIDERS: PCP Physician Assistant Medical; Referring Provider Physician Assistant Medical; Visit Provider Physician Assistant Medical
DX: Z12.31 Encounter for screening mammogram for malignant neoplasm of breast (principal)
CPT/HCPCS: 77063; 77067

== ENCOUNTER 2020-10-16 12:03 | Emergency (ER) | payer OTHER, MEDICAID, SELFPAY ==
[2020-10-16] VITALS (11 sets, daily range): BP systolic 122–152; BP diastolic 78–82; PULSE 82–105; RESP 15–16; TEMP 36.9; O2SAT 95–97; BMI 25.4
--- NOTE | 2020-10-16 14:13 | ED.HA ---
HPI - Headache General Chief Complaint: Headache Stated Complaint: headache since Tuesday, pain neck, upper back Time Seen by Provider: 10/16/20 14:13 Source: patient Mode of arrival: Ambulatory Limitations: no limitations History of Present Illness HPI Narrative: 50-year-old female former smoker with history of migraines presents with a chief complaint of a gradually worsening right-sided headache over the past 3 days. She states it is a squeezing pain, consistent with prior migraines but did not get better with her home medications. She denies any recent trauma, fever or chills. She denies any sudden onset. She has had no neurologic symptoms such as blurred vision, trouble speech or focal neurologic findings. She denies any neck or back pain. She has had no other symptoms and is otherwise well and free MD Complaint: headache and migraine Onset description: gradual Location: right Severity: moderate Quality: aching and throbbing Relieving factors: rest and dark room Exacerbating factors: light Associated symptoms: nausea Treatments prior to arrival: none Related Data Home Medications Medication Instructions Recorded Confirmed benzonatate 100 mg PO Q4H PRN 09/15/18 09/15/18 clobetasol 1 applic TOPICAL DIRECTED 09/15/18 09/15/18 clobetasol 1 applic TOPICAL DIRECTED 09/15/18 09/15/18 desogestrel-ethinyl estradiol 1 tab PO DAILY 09/15/18 09/15/18 [Alexus] diclofenac sodium 75 mg PO BID 09/15/18 09/15/18 epinephrine 0.3 mg IM PRN PRN 09/15/18 escitalopram oxalate 10 mg PO DAILY 09/15/18 09/15/18 fluticasone propionate [Flonase 1 spray INTRANASAL DIRECTED 09/15/18 09/15/18 Allergy Relief] hydrocodone-acetaminophen 1 tab PO PRN PRN 09/15/18 09/15/18 hydroxyzine HCl 10 mg PO BID 09/15/18 09/15/18 ketoconazole 1 applic TOPICAL DIRECTED 09/15/18 09/15/18 ketoconazole 1 applic TOPICAL DIRECTED 09/15/18 09/15/18 naratriptan 2.5 mg PO PRN PRN 09/15/18 09/15/18 pimecrolimus 1 applic TOPICAL DIRECTED 09/15/18 09/15/18 polyethylene glycol 3350 [Gavilax] 17 g PO DAILY 09/15/18 09/15/18 zolpidem 10 mg PO BEDTIME PRN 09/15/18 09/15/18 Allergies Allergy/AdvReac Type Severity Reaction Status Date / Time diphenhydramine Allergy Unknown Verified 09/15/18 17:06 [From BENADRYL] iodine [IODINE] Allergy Unknown Verified 09/15/18 17:06 lidocaine [LIDOCAINE] Allergy Unknown Verified 09/15/18 17:06 NICKEL SULFATE Allergy Unknown Uncoded 09/15/18 17:06 PHENOL FORMALDEHYDE RESIN Allergy Unknown Uncoded 09/15/18 17:06 PHENYLENEDIAMINE Allergy Unknown Uncoded 09/15/18 17:06 POTASSIUM DICHROMATE Allergy Unknown Uncoded 09/15/18 17:06 Review of Systems Constitutional Constitutional: Denies chills, Denies fatigue, Denies fever(s), Denies frequent falls, Reports headache(s), Denies lethargy and Denies weakness Eyes Eyes: Denies change in vision, Denies eye discharge, Denies irritation and Denies loss of vision ENT Ears, Nose, Mouth, and Throat: Denies change in voice, Denies dizziness, Reports headache(s), Denies neck pain, Denies sore throat and Denies throat swelling Cardiovascular Cardiovascular: Denies chest pain, Denies irregular heart rhythm, Denies lightheadedness, Denies palpitations, Denies dyspnea, Denies dyspnea on exertion and Denies orthopnea Respiratory Respiratory: Denies cough, Denies dyspnea, Denies dyspnea on exertion and Denies wheezing Gastrointestinal Gastrointestinal: Denies abdominal pain, Denies change in bowel habits, Denies diarrhea, Denies nausea and Denies vomiting Musculoskeletal Musculoskeletal: Denies neck pain and Denies numbness Integumentary/Breasts Skin/Breast: Denies pruritus, Denies erythema, Denies rash and Denies wounds Neurologic Neurologic: Denies behavioral changes, Denies confusion, Denies dizziness, Denies frequent falls, Reports headache(s), Denies loss of vision, Denies numbness and Denies weakness Psychiatric Psychiatric: Denies anxiety, Denies behavioral changes, Denies confusion, Denies depression, Denies homicidal ideation and Denies suicidal ideation Endocrine Endocrine: Denies fatigue, Denies flushing and Denies palpitations Hematologic/Lymphatic Hematologic/Lymphatic: Denies easy bruising Allergic/Immunologic Allergic/Immunologic: Denies urticaria, Denies throat swelling and Denies wheezing Patient History Medical History Chronic cervical pain Social History Smoking Status: Former smoker alcohol intake: never substance use type: does not use Smoking Status: Former smoker alcohol intake frequency: 0-2 drinks per day Substance Use Type: does not use Exam Narrative Exam Narrative: GENERAL: [50] year old patient appears stated age. Well-nourished, well-developed patient, in mild distress. HEAD: Atraumatic. Normocephalic. EYES: Pupils equal round and reactive. Extraocular motions intact. No scleral icterus. No injection or drainage. ENT: Nose without bleeding, purulent drainage. Throat without erythema, tonsillar hypertrophy or exudate. Airway patent. NECK: Trachea midline. Non tender CARDIOVASCULAR: Regular rate and rhythm without murmurs, gallops, or rubs. RESPIRATORY: Clear to auscultation. Breath sounds equal bilaterally. No wheezes, rales, or rhonchi. GASTROINTESTINAL: Abdomen soft, non-tender, nondistended. EXTREMITIES: No edema or joint tenderness. BACK: Nontender without deformity or crepitance. No flank tenderness. NEURO: AOx3. SKIN: No rash or erythema of visible areas NIH Stroke Scale 1a. LOC: Patient is alert and keenly responsive (0) 1b. LOC Questions: Patient answers both LOC questions accurately (0) 1c. LOC Commands: Patient performs both tasks correctly (0) 2. Best Gaze: Normal (0) 3. Visual: No visual loss (0) 4. Facial palsy: Normal symmetrical movements (0) 5. Motor arm: No drift (0) 6. Motor leg: No drift (0) 7. Limb ataxia: Absent (0) 8. Sensory: Normal (0) 9. Best language: No aphasia; normal (0) 10. Dysarthria: Normal (0) 11. Extinction and inattention: No abnormality (0) NIHSS: 0 Initial Vital Signs Initial Vital Signs: Vital Signs Temperature 98.4 F 10/16/20 12:14 Pulse Rate 94 H 10/16/20 12:14 Respiratory Rate 15 10/16/20 12:14 Blood Pressure 152/81 H 04/22/21 12:14 Pulse Oximetry 97 10/16/20 12:14 Course Orders Ordered: Discontinued Medications Dexamethasone (Dexamethasone 10 Mg/Ml Vial) 10 mg IV NOW ONE Stop: 10/16/20 14:34 Last Admin: 10/16/20 14:42 Dose: 10 mg Documented by: TAMANNA Sodium Chloride (Normal Saline 0.9%) 1,000 mls @ 1,000 mls/hr IV BOLUS ONE Stop: 10/16/20 15:32 Last Infusion: 10/16/20 15:52 Dose: 0 mls/hr Documented by: Admin: 10/16/20 14:41 Dose: 1,000 mls/hr Documented by: TAMANNA Ketorolac Tromethamine (Ketorolac 60 Mg/2 Ml Vial) 15 mg IV NOW ONE Stop: 10/16/20 14:34 Last Admin: 10/16/20 14:42 Dose: 15 mg Documented by: TAMANNA Metoclopramide HCl (Metoclopramide 10 Mg/2 Ml Inj) 10 mg IV NOW ONE Stop: 10/16/20 14:34 Last Admin: 10/16/20 14:42 Dose: 10 mg Documented by: TAMANNA Reevaluation(s) Reevaluation #1: Patient has a near complete resolution of symptoms after the above-stated therapies Vital Signs Vital signs: Vital Signs - 8 hr 10/16/20 12:14 10/16/20 12:36 10/16/20 13:00 Temperature 98.4 F Pulse Rate 94 H 89 86 Respiratory Rate 15 Blood Pressure 152/81 H Pulse Oximetry 97 97 95 10/16/20 13:30 10/16/20 14:00 10/16/20 14:30 Temperature Pulse Rate 87 84 105 H Respiratory Rate Blood Pressure Pulse Oximetry 96 96 96 10/16/20 15:00 10/16/20 15:30 10/16/20 15:52 Temperature Pulse Rate 97 H 82 85 Respiratory Rate Blood Pressure 122/78 Pulse Oximetry 96 96 95 10/16/20 15:57 Temperature Pulse Rate Respiratory Rate 16 Blood Pressure Pulse Oximetry MDM - Headache Lab Data Labs: Point of Care Testing Test Results Negative Urine Dip Bedside Urine Glucose Negative Bedside Urine Bilirubin - Negative Bedside Urine Ketone - Negative Urine Specific Mckinnon 1.015 Bedside Urine Occult Blood - Negative Bedside Urine pH 7.5 Bedside Urine Protein - Negative Bedside Urine Urobilinogen - Negative Bedside Urine Nitrite - Negative Bedside Urine Leukocytes - Negative Esterase MDM Narrative Medical decision making narrative: Headache considerations include, but not limited to: Subarachnoid hemorrhage, but unlikely as patient denies sudden onset of pain, not worst of life, or neck pain Meningitis considered, but thought unlikely given lack of Brudzinski's, Kernig's sign, altered mental status or fever Giant cell arteritis considered, but thought unlikely given lack of unilateral findings, pain in jehovah's witness, vision change HTN Emergency considered, but thought unlikely given normal vitals Other serious diagnoses considered unlikely given lack of red flag findings such as sudden onset, increasing frequency, immunocompromise, systemic signs (fever, chills, stiff neck, or rash), focal neurologic findings, trauma, blood thinners, etc. Discharge Plan Departure Patient Disposition: Home Clinical Impression: Headache Qualifiers: Headache type: unspecified Headache chronicity pattern: unspecified pattern Intractability: not intractable Qualified Code(s): R51.9 - Headache, unspecified Instructions: DI for Headache Activity Restrictions/Additional Instructions: *You have been diagnosed with [ Headache ] *What to do: *Take medications as directed *Follow up with your primary care provider in 2-3 days, call for an appointment. Let them know you were seen in the Emergency Department and that we ask that you be seen in follow up *Return to ER if you should have any new, worsening or concerning symptoms, such as [ fever > 101F, neck pain or stiffness, vomiting, confusion, seizure, focal weakness, vision change, speech deficit or other concerning symptoms ] Prescriptions: No Action desogestrel-ethinyl estradiol [Alexus] 0.15-0.03 mg tablet 1 tab PO DAILY RF: 0 ketoconazole 2 % shampoo 1 applic topical DIRECTED RF: 0 hydrocodone-acetaminophen 5-325 mg tablet 1 tab PO PRN PRN (Reason: pain) RF: 0 pimecrolimus 1 % cream 1 applic topical DIRECTED RF: 0 benzonatate 100 mg capsule 100 mg PO Q4H PRN (Reason: Cough) RF: 0 diclofenac sodium 75 mg tablet,delayed release (DR/EC) 75 mg PO BID RF: 0 clobetasol 0.05 % ointment 1 applic topical DIRECTED RF: 0 epinephrine 0.3 mg/0.3 mL auto-injector 0.3 mg IM PRN PRN (Reason: Allergic Reaction) RF: 0 polyethylene glycol 3350 [Gavilax] 17 gram/dose powder 17 g PO DAILY RF: 0 zolpidem 10 mg tablet 10 mg PO BEDTIME PRN (Reason: Sleep) RF: 0 ketoconazole 2 % cream 1 applic topical DIRECTED RF: 0 hydroxyzine HCl 10 mg tablet 10 mg PO BID RF: 0 clobetasol 0.05 % solution 1 applic topical DIRECTED RF: 0 fluticasone propionate [Flonase Allergy Relief] 50 mcg/actuation spray,suspension 1 spray Intranasal DIRECTED RF: 0 naratriptan 2.5 mg tablet 2.5 mg PO PRN PRN (Reason: Migraine Headache) RF: 0 escitalopram oxalate 10 mg tablet 10 mg PO DAILY RF: 0 Referrals: Feli Farris PA-C [Primary Care Provider] -
[2020-10-16] MEDS: SODIUM CHLORIDE 0.9% 1,000 ML 1000 ML IV (14:41)
[2020-10-16] MEDS: DEXAMETHASONE 10 MG/ML VIAL IV (14:42)
[2020-10-16] MEDS: KETOROLAC 60 MG/2 ML VIAL 15 MG IV (14:42)
[2020-10-16] MEDS: METOCLOPRAMIDE 10 MG/2 ML INJ IV (14:42)
== END 2020-10-16 16:05 | disposition home or self-care (01) ==
PROVIDERS: Emergency Provider Emergency Medicine; PCP Physician Assistant Medical
DX: R51.9 Headache, unspecified (principal); R11.0 Nausea
CPT/HCPCS: 36415; 81003; 81025; 96361; 96374; 96375; 99284; J1100; J1885; J2765

== ENCOUNTER → 2021-03-16 16:10 | Outpatient (CLI) | payer OTHER, MEDICAID, SELFPAY ==
[2021-03-16 17:00] LABS: COVID19 -Nasal RAPID Negative (Negative)
== END ==
PROVIDERS: PCP Physician Assistant Medical; Visit Provider Nurse Practitioner Family
DX: Z20.822 Contact with and (suspected) exposure to COVID-19 (principal); J02.9 Acute pharyngitis, unspecified; R05 Cough; R51.9 Headache, unspecified; R53.83 Other fatigue
CPT/HCPCS: 87635

== ENCOUNTER → 2021-04-07 16:42 | Outpatient (CLI) | payer OTHER, MEDICAID, SELFPAY ==
--- NOTE | 2021-04-07 | DI.MG.S_ITS ---
BILATERAL DIGITAL SCREENING MAMMOGRAM 3D/2D WITH CAD: 04/07/2021 CLINICAL: Routine screening. Comparison is made to exams dated: 04/05/2020 mammogram, 02/14/2019 mammogram, and 01/23/2018 mammogram - [facility]. The tissue of both breasts is heterogeneously dense. This may lower the sensitivity of mammography. Current study was also evaluated with a Computer Aided Detection (CAD) system. There is a round equal density asymmetry with an obscured and circumscribed margin in the left breast middle depth inferior region seen on the mediolateral oblique view only. This is increased in size. No other significant masses, calcifications, or other findings are seen in either breast. IMPRESSION: INCOMPLETE: NEEDS ADDITIONAL IMAGING EVALUATION The round equal density asymmetry in the left breast is indeterminate. Additional views with possible ultrasound are recommended. This exam was interpreted at Station ID: [id number]. NOTE: For mammograms, a report in lay terms will be sent to the patient. Approximately 15% of breast malignancies will not be visualized mammographically. In the management of a palpable breast mass, a negative mammogram must not discourage biopsy of a clinically suspicious lesion. Electronically Signed By: Suzy wills/christian:04/07/2021 17:24:01 letter sent: Additional Imaging Needed ACR BI-RADS Category 0: Incomplete 3340F
== END ==
PROVIDERS: PCP Student in an Organized Health Care Education/Training Program; Referring Provider Student in an Organized Health Care Education/Training Program; Visit Provider Student in an Organized Health Care Education/Training Program
DX: Z12.31 Encounter for screening mammogram for malignant neoplasm of breast (principal)
CPT/HCPCS: 77063; 77067

== ENCOUNTER → 2021-05-19 16:58 | Outpatient (CLI) | payer OTHER, MEDICAID, SELFPAY ==
--- NOTE | 2021-05-19 | DI.MRI.S_ITS ---
PROCEDURE: MR ANGIO HEAD WO CON INDICATIONS: primary exertional headache TECHNIQUE: Noncontrast axial 3-D [id number] MR angiogram, with 3-dimensional maximum intensity projection (MIP) reformats of the internal carotid arteries and posterior circulation then performed. COMPARISON: None. FINDINGS: Image quality: Excellent. Anterior circulation: Intracranial internal carotid arteries demonstrate normal size and intraluminal flow signal. The flow within the paired anterior cerebral arteries is normal and symmetric. The flow within the middle cerebral arteries is normal and symmetric. The anterior communicating artery is seen. No stenoses, occlusions, or aneurysms. Posterior circulation: Visualized portions of the vertebral arteries demonstrate normal caliber. There is fenestration of the mid/proximal basilar artery.. The flow within the posterior cerebral arteries is normal and symmetric. No stenoses, occlusions, or aneurysms. IMPRESSION: 1. Fenestration of the mid/proximal basilar artery. 2. Otherwise negative cerebral MR angiography. Dictated by: Barney Yoder M.D. on 05/20/2021 at 8:34 Approved by: Barney Yoder M.D. on 05/20/2021 at 8:35
--- NOTE | 2021-05-19 | DI.MRI.S_ITS ---
PROCEDURE: MR HEAD/BRAIN WO/W CON INDICATIONS: primary exertional headache TECHNIQUE: Noncontrast axial T1 spin echo, axial T2 fast spin echo, sagittal and axial FLAIR, coronal T2 fast spin echo, axial gradient echo, axial diffusion and ADC through the brain. After the administration of contrast, axial and coronal 3D VIBE or T1 spin echo with fat saturation through the brain. COMPARISON: [facility], CT, HEAD WITHOUT CONTRAST, 09/17/2016, 20:07. FINDINGS: Image quality: Excellent. CSF Spaces: Basal cisterns are patent. No extra-axial fluid collections. Ventricles are normal in size and shape. Brain: No midline shift. No intracranial bleeds or masses. Minimal degree of nonspecific scattered punctate high FLAIR signal foci within the periventricular and subcortical white matter. No abnormal intracranial enhancement. The brainstem appears normal. Diffusion-weighted images demonstrate no acute ischemic insults. No chronic ischemic insults. Normal intravascular flow voids are present. Skull and face: Calvarial marrow is normal in signal. Orbits appear normal. Sinuses: Sinuses and mastoids appear clear. IMPRESSION: 1. Minimal degree of white matter disease, which is nonspecific. Differential considerations include early small vessel ischemic disease, diabetes mellitus, vasculitides, migraines, and demyelinating disorders such as multiple sclerosis, in the appropriate clinical setting. 2. No acute process. No recent infarct. Dictated by: Barney Yoder M.D. on 05/20/2021 at 8:36 Approved by: Barney Yoder M.D. on 05/20/2021 at 8:37
== END ==
PROVIDERS: PCP Student in an Organized Health Care Education/Training Program; Referring Provider Psychiatry & Neurology Neurology; Visit Provider Psychiatry & Neurology Neurology
DX: G44.84 Primary exertional headache (principal)
CPT/HCPCS: 70544; 70553; A9579

== ENCOUNTER → 2021-06-01 14:05 | Outpatient (CLI) | payer OTHER, MEDICAID, SELFPAY ==
--- NOTE | 2021-06-01 | DI.MG.S_ITS ---
UNILATERAL LEFT DIGITAL DIAGNOSTIC MAMMOGRAM 3D/2D WITH ADDITIONAL VIEWS: 06/01/2021 CLINICAL: Additional evaluation requested from prior study. Comparison is made to exams dated: 04/07/2021 mammogram, 04/05/2020 mammogram, and 02/14/2019 mammogram - [facility]. The tissue of left breast is heterogeneously dense. This may lower the sensitivity of mammography. There is a 1.6 cm x 1.9 cm oval equal density mass in the left breast at 9 o'clock middle depth. This is confirmed in today's additional views. No other significant masses or calcifications are seen in the breast. IMPRESSION: INCOMPLETE: NEEDS ADDITIONAL IMAGING EVALUATION The 1.6 cm x 1.9 cm oval equal density mass in the left breast resembles a cyst and is indeterminate. An ultrasound is recommended for further evaluation and is scheduled to immediately follow this examination. This exam was interpreted at Station ID: [id number]. NOTE: For mammograms, a report in lay terms will be sent to the patient. Approximately 15% of breast malignancies will not be visualized mammographically. In the management of a palpable breast mass, a negative mammogram must not discourage biopsy of a clinically suspicious lesion. Electronically Signed By: Ash Menchaca M.D. aty/:06/01/2021 16:28:06 ACR BI-RADS Category 0: Incomplete 3340F
--- NOTE | 2021-06-01 14:06 | DI.US.S_ITS ---
ULTRASOUND OF LEFT BREAST: 06/01/2021 CLINICAL: Patient returns today to evaluate a focal asymmetry in the left breast. Comparison is made to exams dated: 06/01/2021 mammogram, 04/07/2021 mammogram, 04/05/2020 mammogram, 02/14/2019 mammogram, 01/23/2018 mammogram, and 01/15/2016 mammogram - [facility]. Color flow and real-time ultrasound of the left breast were performed. Harkins scale images of the real-time examination were reviewed. There is a 2 cm x 1.2 cm x 1.8 cm oval cyst in the left breast at 9 o'clock middle depth. This oval cyst is anechoic. This correlates with mammography findings. Color flow imaging demonstrates that there is no vascularity present. IMPRESSION: BENIGN There is no sonographic evidence of malignancy. The 2 cm x 1.2 cm x 1.8 cm oval simple cyst in the left breast is benign. A 1 year screening mammogram is recommended. Findings and recommendations were conveyed to the patient during today's evaluation. This exam was interpreted at Station ID: [id number]. Electronically Signed By: Ash Menchaca M.D. aty/:06/01/2021 16:31:17 letter sent: Normal Exam Ultrasound BI-RADS: 2 Benign
== END ==
PROVIDERS: PCP Student in an Organized Health Care Education/Training Program; Referring Provider Student in an Organized Health Care Education/Training Program; Visit Provider Student in an Organized Health Care Education/Training Program
DX: R92.8 Other abnormal and inconclusive findings on diagnostic imaging of breast (principal); N60.02 Solitary cyst of left breast
CPT/HCPCS: 76642; 77065; G0279

== ENCOUNTER → 2021-12-31 17:22 | Outpatient (CLI) | payer OTHER, MEDICAID, SELFPAY ==
[2021-12-31 17:58] LABS: Add Manual Diff / Slide Review NO; Basophils Absolute Auto 0 /uL (0-100); Basophils Percent Auto 0.7 % (0-2); Eosinophils Absolute Auto 100 /uL (0-450); Eosinophils Percent Auto 2.2 % (2-4); Hematocrit 40.7 % (36-46); Hemoglobin 13.9 g/dL (12.0-16.0); Lymphocytes Absolute Auto 2500 /uL (1100-4500); Mean Corpuscular HGB Conc 34.1 % (30-36); Mean Corpuscular Volume 91.1 fL (80-100); Monocytes Absolute Auto 300 /uL (0-900); Monocytes Percent Auto 4.8 % (3-14); Neutrophils Absolute Auto 3600 /uL (1500-7000); Neutrophils Percent Auto 54.3 % (50-75); Platelet Count 292 X10^3/uL (150-400); Red Blood Cell Count 4.46 X10^6/uL (4.0-5.2); Red Cell Distribution Width 13.7 % (11.6-14.8); White Blood Cell Count 6.6 X10^3/uL (4.5-11.0)
[2021-12-31 19:09] LABS: Vitamin D 25 Hydroxy (D3) 86.2 ng/mL (30.0-100.0)
[2022-01-01 03:05] LABS: Alanine Aminotransferase 27 IU/L (<35); Albumin 4.1 g/dL (3.5-5.0); Albumin Globulin Ratio 1.3 (1.0-2.8); Alkaline Phosphatase 46 U/L (38-126); Aspartate Aminotransferase 67 IU/L (14-36); BUN Creatinine Ratio 17.5 (6-22); Bilirubin Total 0.3 mg/dL (0.2-1.3); Blood Urea Nitrogen 17 mg/dL (7-17); C-Reactive Protein Quant < 0.5 mg/dL (<1.0); Calcium 9.2 mg/dL (8.4-10.2); Carbon Dioxide 27 mmol/L (22-32); Chloride 107 mmol/L (98-107); Estimated Glomerular Filt Rate > 60 mL/min (>60); Globulin 3.1 g/dL (1.7-4.1); Glucose 87 mg/dL (70-100); HEMOLYSIS < 15 (0-50); Potassium 3.9 mmol/L (3.4-5.1); Sodium 139 mmol/L (137-145); Total Protein 7.2 g/dL (6.3-8.2)
[2022-01-01 03:54] LABS: Vitamin B12 932 pg/mL (239-931)
== END ==
PROVIDERS: PCP Student in an Organized Health Care Education/Training Program; Referring Provider Student in an Organized Health Care Education/Training Program; Visit Provider Student in an Organized Health Care Education/Training Program
DX: E55.9 Vitamin D deficiency, unspecified (principal); K50.90 Crohn's disease, unspecified, without complications; L23.9 Allergic contact dermatitis, unspecified cause; F51.04 Psychophysiologic insomnia; R06.83 Snoring; Z79.899 Other long term (current) drug therapy
CPT/HCPCS: 36415; 80053; 82306; 82607; 85025; 86140; Q3014

== ENCOUNTER 2022-03-25 13:51 | Emergency (ER) | payer OTHER, MEDICAID, SELFPAY ==
[2022-03-25 14:00] VITALS: BP 120/80; PULSE 79; RESP 14; TEMP 36.5; O2SAT 100; BMI 22.6
--- NOTE | 2022-03-25 14:12 | DI.US.S_ITS ---
PROCEDURE: US BREAST RT LIMITED Indication: evaluate for abscess Comparison is made to exams dated: 04/07/2021 mammogram, 04/05/2020 mammogram, 02/14/2019 mammogram, 01/23/2018 mammogram, 01/15/2016 mammogram, and 12/25/2014 mammogram - [facility]. Color flow and real-time ultrasound of the right breast were performed. Harkins scale images of the real-time examination were reviewed. There is a 4.4 cm x 2.6 cm x 5.5 cm irregular fluid collection in the right breast at 3 o'clock anterior depth 4 cm from the nipple. This irregular fluid collection is of mixed echogenicity with internal echoes. This correlates as palpated, to the reported pain, with area of redness, and area of clinical concern. There is associated edema, dilated ducts, and skin thickening. Color flow imaging demonstrates that there is increased vascularity. IMPRESSION: The 4.4 cm x 2.6 cm x 5.5 cm irregular fluid collection in the right breast most likely is an abscess, given provided history of two weeks of redness and pain. Clinical correlation is recommended. Following treatment, followup imaging is recommended to assess for underlying mass in 1 month with ultrasound. Because the patient will be due for her annual mammogram at this time, a diagnostic mammographic workup can be performed simultaneously. BI-RADS 3: Probably benign. Dictated by: Alec Gallardo M.D. on 03/25/2022 at 15:02 Approved by: Alec Gallardo M.D. on 03/25/2022 at 15:04
--- NOTE | 2022-03-25 14:12 | ED_ITS ---
HPI - Skin/Abscess/Foreign Bdy General Chief complaint: Skin/Abscess/Foreign Body Stated complaint: Lump on breast sent from [facility] Time Seen by Provider: 03/25/22 14:05 Source: patient Mode of arrival: Ambulatory Limitations: no limitations History of Present Illness HPI narrative: 51-year-old female who is sent over from the walk-in clinic for evaluation of a potential abscess to her right breast. She states that over the past couple weeks she is noticed increased swelling and sharp discomfort to the area. She has had issues in the past with her right breast. Has had ultrasounds and also mammograms. Is told that she is had a cyst. She denies any fevers. And no nipple drainage. Over the past couple days/week she is noticed increasing swelling around her right breast. She went to the walk-in clinic today who sent her to the emergency department. Related Data Home Medications Medication Instructions Recorded Confirmed topiramate 50 mg tablet 50 mg PO BEDTIME 07/17/21 12/31/21 ashwagandha root extract PO 10/29/21 12/31/21 amari root xt-fennel sd xt PO 10/29/21 12/31/21 loratadine 10 mg capsule 10 mg PO DAILY 10/29/21 12/31/21 magnesium oxide 400 mg (241.3 mg 400 mg PO DAILY 10/29/21 12/31/21 magnesium) tablet multivitamin [Multivitamins FC] PO 10/29/21 12/31/21 rimegepant 75 mg disintegrating 75 mg PO ONCE PRN 10/29/21 12/31/21 tablet (Nurtec ODT) vedolizumab [Entyvio] IV 10/29/21 12/31/21 vitamin B complex PO 10/29/21 12/31/21 Amari Root 1 cap PO DAILY 12/31/21 riboflavin (vitamin B2) 400 mg 400 mg PO DAILY 12/31/21 12/31/21 tablet Previous Rx's Medication Instructions Recorded escitalopram oxalate 10 mg tablet 10 mg PO DAILY #90 tabs 05/13/21 naratriptan 2.5 mg tablet 2.5 mg PO Q4H PRN Migraine 05/13/21 Headache #9 tabs hydroxyzine HCl 10 mg tablet 10 - 20 mg PO BEDTIME PRN itching 12/29/21 #60 tabs ketoconazole 2 % shampoo 1 applic topical 2XW #120 mL 12/29/21 epinephrine 0.3 mg/0.3 mL 0.3 mg (0.3 mL) IM ONCE #2 ea 12/31/21 injection, auto-injector fluticasone propionate 50 1 spray intranasal BID PRN allergy 01/08/22 mcg/actuation nasal symptoms #16 grams spray,suspension zolpidem 10 mg tablet 10 mg PO BEDTIME PRN Sleep #30 tabs 02/18/22 sulfamethoxazole 800 1 tab PO BID 7 days #14 tabs 03/25/22 mg-trimethoprim 160 mg tablet (Bactrim DS) Allergies Allergy/AdvReac Type Severity Reaction Status Date / Time diphenhydramine Allergy Unknown Verified 03/25/22 14:03 [From BENADRYL] iodine [IODINE] Allergy Unknown Verified 03/25/22 14:03 lidocaine [LIDOCAINE] Allergy Unknown Verified 03/25/22 14:03 NICKEL SULFATE Allergy Unknown Uncoded 12/31/21 16:12 PHENOL FORMALDEHYDE RESIN Allergy Unknown Uncoded 12/31/21 16:12 PHENYLENEDIAMINE Allergy Unknown Uncoded 12/31/21 16:12 POTASSIUM DICHROMATE Allergy Unknown Uncoded 12/31/21 16:12 Review of Systems Constitutional Constitutional: Denies fever(s) ENT Ears, Nose, Mouth, and Throat: Reports system reviewed and no additional complaints, except as documented Integumentary/Breasts Skin/Breast: Reports system reviewed and no additional complaints, except as documented Hematologic/Lymphatic On Anticoagulants: No Patient History Medical History Chronic cervical pain Crohn's disease (~2008) Eczema (~2006) Migraine (~1995) Osteopenia (~2016) Snoring Spinal cord compression (~2017) Family History Father Diabetes mellitus Mother Dementia Grandmother Hypertension Stroke Social History Smoking Status: Former smoker alcohol intake: never substance use type: does not use Smoking Status: Former smoker alcohol intake frequency: holidays/special occasions only Substance Use Type: does not use Exam Initial Vital Signs Initial Vital Signs: Vital Signs Temperature 97.7 F 03/25/22 14:00 Pulse Rate 79 03/25/22 14:00 Respiratory Rate 14 03/25/22 14:00 Blood Pressure 120/80 03/25/22 14:00 Pulse Oximetry 100 03/25/22 14:00 Oxygen Delivery Method 03/25/22 14:00 Const General: cooperative, comfortable and well developed [facility] Head: normal to inspection and normocephalic Chest Other: Patient's right breast is larger compared to the left. There is a large area of induration encompassing approximately 1/3 of the breast on the superior/medial aspect. No nipple drainage. Minimal overlying skin changes to the area. Resp Effort & Inspection: normal respiratory effort Skin Other: No rashes, Neuro General: patient alert and patient awake Extrem General: normal to inspection and capillary refill normal Procedures Abscess I/D I&D #1: Site: other (Breast) Side (if applicable): right Local Anesthetic: bupivacaine 0.5% and with epi Amount of anesthesia used (mL): 3 Technique: needle aspiration Amount of fluid expressed (mL): 5 Irrigation: No Packing used?: none Course Orders Ordered: ED Orders 03/25/22 14:12 breast RT limited Stat 03/25/22 14:44 Basic Metabolic Panel Stat Complete Blood Count AUTO DIFF Stat 03/25/22 15:48 Wound Culture and Gram Stain Stat Vital Signs Vital signs: Vital Signs - 8 hr 03/25/22 14:00 Temperature 97.7 F Pulse Rate 79 Respiratory Rate 14 Blood Pressure 120/80 Pulse Oximetry 100 Oxygen Delivery Method Room Air MDM - Skin/Abscess/Foreign Bdy Lab Data Result diagrams: 03/25/22 14:44 03/25/22 14:44 Labs: Lab Results 03/25/22 03/25/22 Range/Units 14:44 14:44 WBC 11.0 (4.5-11.0) X10^3/uL RBC 4.51 (4.0-5.2) X10^6/uL Hgb 13.6 (12.0-16.0) g/dL Hct 39.8 (36-46) % MCV 88.2 (80-100) fL MCH 30.2 (26-34) PG MCHC 34.3 (30-36) % RDW 13.0 (11.6-14.8) % Plt Count 340 (150-400) X10^3/uL Neut % (Auto) 78.4 H (50-75) % Lymph % (Auto) 15.3 L (25-40) % Laurens % (Auto) 5.1 (3-14) % Eos % (Auto) 0.8 L (2-4) % Baso % (Auto) 0.4 (0-2) % Neut # (Auto) 8600 H (5480-2527) /uL Lymph # (Auto) 1700 (2565-3161) /uL Laurens # (Auto) 600 (0-900) /uL Eos # (Auto) 100 (0-450) /uL Baso # (Auto) 0 (0-100) /uL Sodium 140 (137-145) mmol/L Potassium 3.8 (3.4-5.1) mmol/L Chloride 105 (98-107) mmol/L Carbon Dioxide 24 (22-32) mmol/L BUN 10 (7-17) mg/dL Creatinine 0.86 (0.52-1.04) mg/dL Estimated GFR > 60 (>60) mL/min BUN/Creatinine Ratio 11.6 (6-22) Glucose 96 (70-100) mg/dL Calcium 8.9 (8.4-10.2) mg/dL Imaging Data breast ultrasound: Radiologist's Impression: [place] [address] Ultrasound Report Signed Patient: Dillan Layton MR#: [id number] : 1970 Acct:[id number] Age/Sex: 51 / F Date of Service: 03/25/22 Loc: ED Accession Number: [id number] ?? Procedure: US breast RT limited Ordering Provider: Shravan Owens D.O. PROCEDURE: US BREAST RT LIMITED ? Indication: evaluate for abscess ? Comparison is made to exams dated:? 04/07/2021 mammogram, 04/05/2020 mammogram, 02/14/2019 mammogram, 01/23/2018 mammogram, 01/15/2016 mammogram, and 12/25/2014 mammogram - [facility].? ? Color flow and real-time ultrasound of the right breast were performed.? Harkins scale images of the real-time examination were reviewed.? ? There is a 4.4 cm x 2.6 cm x 5.5 cm irregular fluid collection in the right breast at 3 o'clock anterior depth 4 cm from the nipple.? This irregular fluid collection is of mixed echogenicity with internal echoes.? This correlates as palpated, to the reported pain, with area of redness, and area of clinical concern.? There is associated edema, dilated ducts, and skin thickening.? Color flow imaging demonstrates that there is increased vascularity.? ? IMPRESSION: ? The 4.4 cm x 2.6 cm x 5.5 cm irregular fluid collection in the right breast most likely is an abscess, given provided history of two weeks of redness and pain.? Clinical correlation is recommended.? ? Following treatment, followup imaging is recommended to assess for underlying mass in 1 month with ultrasound. Because the patient will be due for her annual mammogram at this time, a diagnostic mammographic workup can be performed simultaneously. ? BI-RADS 3: Probably benign. ? Dictated by: Alec Gallardo M.D. on 03/25/2022 at 15:02 ? ? Approved by: Alec Gallardo M.D. on 03/25/2022 at 15:04? MDM Narrative Medical decision making narrative: Initially questioned whether not her presenting symptoms today was an abscess versus a cyst. She states she has had developing symptoms over the past 2 weeks. Is afebrile. No leukocytosis. No overlying cellulitis. She also states she is had very similar issues in the past in the same spot and never this large and was told that it was a cyst. Ultrasound shows large fluid co llection. I did discuss the case with Dr. Dietrich on-call with General surgery. Needle aspiration performed which did return purulent material. Patient tolerated procedure well. This was sent for wound culture. Will place the patient on antibiotics. Will have her follow-up with General surgery. Discharge Plan Departure Patient Disposition: Home Clinical Impression: Abscess of breast Instructions: DI for Skin Abscess Activity Restrictions/Additional Instructions: A prescription for antibiotics was sent to the pharmacy of your choice. Please start taking it as directed. Contact the general surgery department at the number provided below for follow-up beginning of next week. You can shower like normal. You can cover the area with a bandage but expect some drainage over the next 24-48 hours. Return to the emergency department for any new or worsening symptoms. You do need follow-up with General surgery and also your primary doctor. You will need a follow-up ultrasound in approximately 1 month after this current abscess has resolved. Prescriptions: New sulfamethoxazole-trimethoprim [Bactrim DS] 800-160 mg tablet 1 tab PO BID 7 Days Qty: 14 0RF No Action escitalopram oxalate 10 mg tablet 10 mg PO DAILY Qty: 90 3RF naratriptan 2.5 mg tablet 2.5 mg PO Q4H MDD 5mg PRN (Reason: Migraine Headache) Qty: 9 11RF Rx Instructions: Begin at first sign of migraine ketoconazole 2 % shampoo 1 applic topical 2XW Qty: 120 1RF Rx Instructions: Apply topically for 2 weeks as needed for seborrheic dermatitis. hydroxyzine HCl 10 mg tablet 10 - 20 mg PO BEDTIME PRN (Reason: itching) Qty: 60 5RF fluticasone propionate 50 mcg/actuation spray,suspension 1 spray Intranasal BID PRN (Reason: allergy symptoms) Qty: 16 3RF topiramate 50 mg tablet 50 mg PO BEDTIME zolpidem 10 mg tablet 10 mg PO BEDTIME PRN (Reason: Sleep) Qty: 30 5RF Amari Root 550 mg 1 cap PO DAILY riboflavin (vitamin B2) 400 mg tablet 400 mg PO DAILY epinephrine 0.3 mg/0.3 mL auto-injector 0.3 mg IM ONCE Qty: 2 11RF Rx Instructions: as a single dose; may repeat once loratadine 10 mg capsule 10 mg PO DAILY magnesium oxide 400 mg (241.3 mg magnesium) tablet 400 mg PO DAILY Nurtec ODT 75 mg tablet,disintegrating 75 mg PO ONCE PRN Rx Instructions: as a single dose vedolizumab [Entyvio] IV multivitamin [Multivitamins FC] PO vitamin B complex PO amari root xt-fennel sd xt PO ashwagandha root extract PO Referrals: Dom High MD [Primary Care Provider] - Flaco Dietrich MD [Physician] -
[2022-03-25 15:04] LABS: Add Manual Diff / Slide Review NO; Basophils Absolute Auto 0 /uL (0-100); Basophils Percent Auto 0.4 % (0-2); Eosinophils Absolute Auto 100 /uL (0-450); Eosinophils Percent Auto 0.8 % (2-4); Hematocrit 39.8 % (36-46); Hemoglobin 13.6 g/dL (12.0-16.0); Lymphocytes Absolute Auto 1700 /uL (1100-4500); Lymphocytes Percent Auto 15.3 % (25-40); Mean Corpuscular HGB Conc 34.3 % (30-36); Mean Corpuscular Hemoglobin 30.2 PG (26-34); Mean Corpuscular Volume 88.2 fL (80-100); Monocytes Absolute Auto 600 /uL (0-900); Monocytes Percent Auto 5.1 % (3-14); Neutrophils Absolute Auto 8600 /uL (1500-7000); Neutrophils Percent Auto 78.4 % (50-75); Platelet Count 340 X10^3/uL (150-400); Red Blood Cell Count 4.51 X10^6/uL (4.0-5.2)
[2022-03-25 15:12] LABS: BUN Creatinine Ratio 11.6 (6-22); Blood Urea Nitrogen 10 mg/dL (7-17); Calcium 8.9 mg/dL (8.4-10.2); Carbon Dioxide 24 mmol/L (22-32); Chloride 105 mmol/L (98-107); Estimated Glomerular Filt Rate > 60 mL/min (>60); Glucose 96 mg/dL (70-100); HEMOLYSIS < 15 (0-50); Potassium 3.8 mmol/L (3.4-5.1); Sodium 140 mmol/L (137-145)
[2022-03-25 15:55] VITALS: BP 127/67; PULSE 83; RESP 17; O2SAT 100
== END 2022-03-25 15:58 | disposition home or self-care (01) ==
PROVIDERS: Emergency Provider Emergency Medicine; PCP Student in an Organized Health Care Education/Training Program
DX: N61.1 Abscess of the breast and nipple (principal)
CPT/HCPCS: 10060; 36415; 76642; 80048; 85025; 87070; 87075; 87077; 87147; 87186; 87205; 99283; 99284

== ENCOUNTER → 2022-04-05 10:19 | Outpatient (CLI) | payer OTHER, MEDICAID, SELFPAY ==
[2022-04-05 11:29] LABS: COVID19 -Nasal RAPID Negative (Negative)
== END ==
PROVIDERS: PCP Student in an Organized Health Care Education/Training Program; Visit Provider Surgery
DX: Z01.812 Encounter for preprocedural laboratory examination (principal); Z20.822 Contact with and (suspected) exposure to COVID-19; N61.1 Abscess of the breast and nipple
CPT/HCPCS: 87635; 99213

== ENCOUNTER 2022-04-06 14:01 | Day surgery (SDC) | payer OTHER, MEDICAID, SELFPAY ==
[2022-04-05 11:40] VITALS: BMI 22.1
[2022-04-06] VITALS (7 sets, daily range): BP systolic 120–137; BP diastolic 68–90; PULSE 75–100; RESP 14–18; TEMP 36.1–36.6; O2SAT 97–100; BMI 22.1
[2022-04-06] MEDS: LACTATED RINGERS 1,000 ML 42 ML IV (15:21)
--- NOTE | 2022-04-06 15:45 | SUR.OPER ---
Supine on padded OR bed, head on pillow, arms secured on padded arm boards at <90 degrees abduction, legs uncrossed, safety belt at thigh, tape over blanket over lower legs.
--- NOTE | 2022-04-06 15:55 | PM.PREOP ---
Pre-operative Note COVID-19 COVID-19 status: Negative Interval Note History & Physical reviewed/Exam performed by Physician: Yes Changes to H&P: No ASA Class (for procedural sedation): II
[2022-04-06] MEDS: BUPIVACAINE 0.5% W/ EPI (PF) 30 ML VIAL INJ (16:36)
--- NOTE | 2022-04-06 16:41 | PM.OP.1 ---
Operative Date/Time/Diagnoses Date of procedure: 04/06/22 Time of procedure: 16:41 Pre-op diagnosis: Right breast abscess Post-op diagnosis: same Procedure & Clinicians Procedure: Incision drainage of right breast abscess Same procedure as scheduled: Yes Surgeon: Flaco Dietrich Operative Notes Procedure in detail: The patient was brought to the operating room placed on the table in the supine position. General anesthesia was induced via LMA. The right arm was placed out on an arm board. The right breast was prepped and draped in the usual fashion and a time-out was performed. A 3 cm curvilinear incision was created along areolar border of the upper inner quadrant. Initially we did not encounter pus pocket. A needle was used to probe for the pus pocket and only a small amount of pus was retrieved. We then bluntly dissected with a tonsil and entered the cavity. Copious purulent drainage ensued. Several cultures were taken and sent to micro. Finger was inserted to bluntly break up any internal septations. We then packed the wound cavity with a Kerlix gauze. The cavity itself was not completely filled but the incision was held open. Additional local was injected into the skin and dermis. Several 4x4s and an ABD pad were applied followed by a binder. EBL: 50 mL Post-operative Condition: stable Disposition: PACU
[2022-04-06] MEDS: OXYCODONE IR 5 MG TABLET PO ×2 (17:03→17:37)
--- NOTE | 2022-04-06 17:40 | SUR.PHASEII ---
Patient ambulated to wheelchair with steady gait. tolerated fluids. Provided discharge instructions verbal/written. Discharged with 13 year old daughter in wheelchair to [employer] in stable condition. See flowsheet for assessment details.
== END 2022-04-06 17:40 | disposition home or self-care (01) ==
PROVIDERS: PCP Student in an Organized Health Care Education/Training Program; Referring Provider Surgery; Visit Provider Surgery
PROC: (CPT 19020; principal; 2022-04-06 16:00)
DX: N61.1 Abscess of the breast and nipple (principal); G47.33 Obstructive sleep apnea (adult) (pediatric)
CPT/HCPCS: 19020; 00404; 87070; 87075; 87077; 87147; 87186; 87205; J1100; J2405; J2704; J3010